=== PATIENT | male | born 1950 | race Caucasian/White ===

== ENCOUNTER 2022-04-17 02:46 | Emergency (ER) | payer SELFPAY ==
[2022-04-17] MEDS ORDERED: Morphine 4 MG/ML VIAL ONE (02:56)
[2022-04-17] MEDS ORDERED: Lorazepam 2 MG/ML VIAL ONE (02:57)
[2022-04-17 03:16] LABS: #Monocytes 0.2 10x3/uL (0.0-1.1); #Neutrophils 5.6 10x3/uL (1.5-8.4); %Basophils 0.5 % (0.0-2.0); %Eosinophils 0.5 % (0.0-6.0); %Lymphocytes 9.7 % (18.0-47.0); %Monocytes 3.1 % (0.0-10.0); %Neutrophils 85.7 % (40.0-75.0); Hemoglobin 13.9 g/dL (13.5-17.5); Mean Corpuscular HGB CONC 33.8 g/dL (32.0-36.0); Mean Corpuscular Hemoglobin 30.2 pg (27.0-33.0); Mean Corpuscular Volume 89.2 fl (81.2-95.1); Platelet Count 174 10x3/uL (150-450); RBC Distribution Width 12.7 % (11.5-14.5); Red Blood Cell (RBC) Count 4.61 10x6/uL (4.32-5.72); White Blood Cell (WBC) Count 6.5 10x3/uL (3.5-10.5)
[2022-04-17 03:36] LABS: ALT (SGPT) 81 U/L (8-55); AST (SGOT) 83 U/L (5-34); Alkaline Phosphatase 233 U/L (40-110); Anion Gap 18 mmol/L (10-20); BUN (Urea Nitrogen) 12 mg/dL (8.4-25.7); Bilirubin, Total 1.7 mg/dL (0.2-1.2); Calc. Creatinine Clearance 0 mL/min (70-130); Calcium 8.8 mg/dL (7.8-10.44); Carbon Dioxide 20 mmol/L (23-31); Chloride 103 mmol/L (98-107); Globulin 2.4 g/dL (2.4-3.5); Glucose 159 mg/dL (83-110); Lipase 18 U/L (8-78); Potassium 3.3 mmol/L (3.5-5.1); Protein, Total 6.4 g/dL (5.8-8.1); Sodium 138 mmol/L (136-145)
[2022-04-17 03:37] LABS: Acetaminophen Less than 10.0 mcg/mL (10.0-30.0); Alcohol Less than 10 mg/dL (Less than 10); CK (CPK) 71 U/L (30-200); Salicylate Less than 8.0 mg/dL (15.0-30.0)
[2022-04-17 06:23] LABS: Troponin I Less than 0.010 ng/mL (< 0.028)
[2022-04-17] MEDS ORDERED: Iopamidol 370 76% 100 ML VIAL ONE (10:09)
== END 2022-04-17 08:40 | disposition home or self-care (01) ==
LOC: CSHERS 02:46
DX: K80.20 Calculus of gallbladder without cholecystitis without obstruction (principal)
CPT/HCPCS: 36415; 71275; 74176; 80053; 80307; 82550; 83690; 83880; 84484; 85025; 93005; 96372; 96374; J2060; J2270; Q9967